=== PATIENT | female | born 2000 | race Caucasian/White ===

== ENCOUNTER → 2024-02-21 13:49 | Outpatient (BNVA) | payer MEDICAID, SELFPAY | PROVIDERS: Family Provider Family Medicine; PCP Nurse Practitioner Family; Referring Provider Nurse Practitioner Family; Visit Provider Nurse Practitioner Family | DX: D48.5 Neoplasm of uncertain behavior of skin (principal); D22.62 Melanocytic nevi of left upper limb, including shoulder; L81.2 Freckles; Z71.89 Other specified counseling | CPT/HCPCS: 56605; 99203 ==